=== PATIENT | female | born 1950 | race Caucasian/White ===

== ENCOUNTER 2019-12-09 13:58 | Outpatient (CLI) | payer MEDICARE, OTHER, SELFPAY ==
--- NOTE | 2019-12-09 14:30 | XRR_ITS ---
PROCEDURE INFORMATION: Exam: XR Right Shoulder Exam date and time: 12/09/2019 3:27 PM Age: 68 years old Clinical indication: Pain; Shoulder; Right; Additional info: Pain in right shoulder, neck pain TECHNIQUE: Imaging protocol: XR Right shoulder. Views: 2 or more views. COMPARISON: No relevant prior studies available. FINDINGS: Bones/joints: No dislocation is seen. The acromioclavicular and glenohumeral joints are normally aligned. No fracture is visualized. No destructive osseous lesions are seen. Soft tissues: There are no findings of calcific tendinitis. XR/XR shoulder RT min 2V* [id number] IMPRESSION: No acute radiographic abnormality of the shoulder.
--- NOTE | 2019-12-09 14:30 | XRR_ITS ---
PROCEDURE INFORMATION: Exam: XR Cervical Spine, 6 or More Views Exam date and time: 12/09/2019 3:19 PM Age: 68 years old Clinical indication: Neck pain; Additional info: Cervicalgia, chronic pain TECHNIQUE: Imaging protocol: XR of the cervical spine, 6 or more views. COMPARISON: CR Cervical Spine AP/Lat* [id number] 02/12/2015 10:07 AM FINDINGS: Vertebrae: Diffuse cervical facet arthropathy. Oblique views demonstrate encroachment of the left neural foramen at C5-C6. There are no anterior wedging deformities. No acute lucent fracture lines are visualized. Spondylitic changes are most prominent at the C5-C6 level. Soft tissues: Normal. XR/XR cervical spine min 6V [id number] IMPRESSION: 1. Spondylitic changes most prominent at C5-C6. 2. Diffuse cervical facet arthropathy. 3. Left neural foraminal encroachment at C5-C6.
== END 2019-12-09 13:59 | disposition home or self-care (01) ==
LOC: RAD 14:05
PROVIDERS: Family Provider Family Medicine; PCP Nurse Practitioner Family; Visit Provider Nurse Practitioner Family
DX: M47.892 Other spondylosis, cervical region (principal); M54.2 Cervicalgia; M25.511 Pain in right shoulder
CPT/HCPCS: 72052; 73030

== ENCOUNTER 2019-12-16 14:09 | Outpatient (CLI) | payer MEDICARE, OTHER, SELFPAY ==
--- NOTE | 2019-12-16 | XR_ITS ---
WS: [id number] LATERAL CERVICAL SPINE: 3 view. Lateral radiographs are performed in upright neutral, flexion and extension to the patient's toleranc e. HISTORY: SPONDYLOSIS WITHOUT MYELOPATHY OR RADICULOPATHY, CERVICAL region COMPARISON: 12/09/2019 Straightening of the normal cervical lordosis. Spondylitic changes most significant at C5-C6. 3 mm os teophyte extends posteriorly C5. 2 mm retrolisthesis of C5 with no change with flexion and extension. XR/XR cervical spine fl/ex [id number] IMPRESSION: 1. No cervical instability. 2. Less than 2 mm retrolisthesis of C5 with no instability. 3. Moderate spondylitic changes at C5-6.
== END 2019-12-16 14:10 | disposition home or self-care (01) ==
LOC: RADWPI 14:14
PROVIDERS: Family Provider Family Medicine; PCP Nurse Practitioner Family; Visit Provider Anesthesiology Pain Medicine
DX: M47.812 Spondylosis without myelopathy or radiculopathy, cervical region (principal)
CPT/HCPCS: 72040

== ENCOUNTER 2020-08-02 13:54 | Outpatient (CLI) | payer MEDICARE, OTHER, SELFPAY ==
--- NOTE | 2020-08-02 14:04 | XR_ITS ---
WS: [id number] SCREENING DEXA SCAN [facility] CLINICAL INFORMATION: POST MENOPAUSAL COMPARISON: 03 10,018 FINDINGS: The L1-L4 bone mineral density measures 0.975 g/cm2. This corresponds to a T score score of -1.7 and Z score of -0.6. Left femoral neck bone mineral density measures 0.865 g/cm2. This corresponds to a T score of -1.1 an d Z score of -0.2. Right femoral neck bone mineral density measures 0.889 g/cm2. This corresponds to a T score -0.9of an d Z score of 0.0. Mean femoral neck bone mineral density measures 0.877 g/cm2. This corresponds to a T score of -1.0 an d Z score of -0.1. XR/XR DEXA axial skeleton* [id number] IMPRESSION: Osteopenia Patient's FRAX calculated 10 year probability for major osteoporotic fracture i s 15.3 % and osteoporotic hip fracture is 2.0%.
== END 2020-08-02 13:55 | disposition home or self-care (01) ==
LOC: RADWPI 13:56
PROVIDERS: Family Provider Family Medicine; PCP Nurse Practitioner Family; Visit Provider Nurse Practitioner Family
DX: Z78.0 Asymptomatic menopausal state (principal); M85.89 Other specified disorders of bone density and structure, multiple sites
CPT/HCPCS: 77080

== ENCOUNTER → 2020-08-03 14:01 | Outpatient (BNVA) | payer MEDICARE, OTHER, SELFPAY | PROVIDERS: Family Provider Family Medicine; PCP Nurse Practitioner Family; Referring Provider Nurse Practitioner Family; Visit Provider Nurse Practitioner Family | DX: N39.3 Stress incontinence (female) (male) (principal) | CPT/HCPCS: 81001 ==

== ENCOUNTER 2021-07-24 10:41 | Outpatient (CLI) | payer MEDICARE, OTHER, SELFPAY ==
--- NOTE | 2021-07-24 10:47 | MM_ITS ---
WS: [id number] BILATERAL SCREENING DIGITAL MAMMOGRAM WITH CAD HISTORY: SCREENING COMPARISON: 06/26/2017 and 02/02/2015 Bilateral CC and MLO views submitted. Computer aided detection analyzed. Breast composition: There are scattered areas of fibroglandular density. No suspicious masses, microc alcifications or architectural distortion. MM/[place] [id number] IMPRESSION: BI-RADS: 1-Negative FOLLOW UP: 1 Year Follow-up
== END 2021-07-24 10:42 | disposition home or self-care (01) ==
LOC: RADSHAW 10:45
PROVIDERS: PCP Electrodiagnostic Medicine; Visit Provider Electrodiagnostic Medicine
DX: Z12.31 Encounter for screening mammogram for malignant neoplasm of breast (principal)
CPT/HCPCS: 77067

== ENCOUNTER → 2021-12-25 14:03 | Outpatient (BNVA) | payer MEDICARE, OTHER, SELFPAY | PROVIDERS: PCP Electrodiagnostic Medicine; Visit Provider Specialist | DX: G24.3 Spasmodic torticollis (principal); M54.12 Radiculopathy, cervical region; L98.9 Disorder of the skin and subcutaneous tissue, unspecified | CPT/HCPCS: 99204 ==

== ENCOUNTER 2022-02-06 10:37 | Outpatient (CLI) | payer MEDICARE, OTHER, SELFPAY ==
--- NOTE | 2022-02-06 11:00 | MR_ITS ---
WS: [id number] MRI CERVICAL SPINE NONCONTRAST HISTORY: G24.3 - Spasmodic torticollis COMPARISON: 12/16/2019 Technique: Multiplanar, multisequence noncontrast imaging of the cervical spine. Curvature of the cervical spine may be positional. Patient's head is rotated to the LEFT. Posterior a lignment is normal. No acute marrow edema. Advanced degenerative disc disease at C5-6. Similar to the prior study. Disc space narrowing at all levels with osteophytes. Evaluation of the cervical cord is limited. No evidence for atrophy or myelomalacia but subtle areas would not be visible. Visualized posterior fossa is unremarkable. Craniocervical junction appears intact with degenerative changes at the odontoid process. C2-C3: Osteophytic ridging resulting in mild central and bilateral foraminal stenosis. Mild facet art hritis. C3-C4: Diffuse osteophytic ridging and annular disc bulging. Bilateral facet joint arthritis. Disc os teophyte complex is more significant on the LEFT. C4-C5: Diffuse moderate annular disc bulging and osteophytic ridging. Disc osteophyte complexes exten d into the neural foramen slightly greater on the RIGHT. There is contact on the ventral thecal sac. Mild central and bilateral foraminal stenosis. C5-C6: Diffuse annular disc bulging with a focal central disc protrusion. Moderate-sized disc osteoph yte complexes extend into the neural foramen. Moderate central and bilateral foraminal stenosis. C6-C7: No significant stenosis. C7-T1: No significant stenosis. Paraspinal soft tissue are normal. MR/MR cervical spin wo con* [id number] IMPRESSION: 1. Multilevel moderate to severe degenerative disc disease and spondylosis. Mo st significant at C5-6. There is been mild progression since 12/16/2019. 2. Moderate central and bilateral foraminal stenosis at C5-6 due to disc and o steophyte disease. 3. Mild central and bilateral foraminal stenosis at C2-3, C3-4 and C4-5. Sligh tly greater disc osteophyte complex in the LEFT neural foramen of C3-4.
== END 2022-02-06 10:38 | disposition home or self-care (01) ==
LOC: RAD 10:38
PROVIDERS: PCP Electrodiagnostic Medicine; Visit Provider Specialist
DX: G24.3 Spasmodic torticollis (principal); M50.322 Other cervical disc degeneration at C5-C6 level; M25.78 Osteophyte, vertebrae; M48.02 Spinal stenosis, cervical region
CPT/HCPCS: 72141

== ENCOUNTER → 2022-03-21 13:39 | Outpatient (BNVA) | payer MEDICARE, OTHER, SELFPAY | PROVIDERS: PCP Electrodiagnostic Medicine; Visit Provider Specialist | DX: G24.3 Spasmodic torticollis (principal); M54.12 Radiculopathy, cervical region | CPT/HCPCS: 64616; 99214; J0585 ==

== ENCOUNTER → 2022-06-13 15:27 | Outpatient (BNVA) | payer MEDICARE, OTHER, SELFPAY | PROVIDERS: PCP Electrodiagnostic Medicine; Visit Provider Specialist | DX: G24.3 Spasmodic torticollis (principal) | CPT/HCPCS: 64616; J0585 ==

== ENCOUNTER → 2022-07-01 13:53 | Outpatient (BNVA) | payer MEDICARE, OTHER, SELFPAY | PROVIDERS: PCP Electrodiagnostic Medicine; Visit Provider Internal Medicine Cardiovascular Disease | DX: R55 Syncope and collapse (principal); I10 Essential (primary) hypertension; E78.5 Hyperlipidemia, unspecified; K21.9 Gastro-esophageal reflux disease without esophagitis; F32.9 Major depressive disorder, single episode, unspecified | CPT/HCPCS: 99214 ==

== ENCOUNTER 2022-07-15 13:23 | Outpatient (CLI) | payer MEDICARE, OTHER, SELFPAY ==
--- NOTE | 2022-07-15 13:44 | XR_ITS ---
WS: [email or web address] Exam: XR KUB [id number] Date/Time of Exam: 07/15/2022 1:49 PM Reason For Exam: HX OF NEPHROLITHIASIS No bowel obstruction or free air. Small calcification superimpose right renal silhouette and may repr esent renal stones. Nonspecific bilateral pelvic calcifications. No sign of organ enlargement. Degene rative changes of the lower lumbar spine. Signs of previous pelvic surgery. XR/XR KUB [id number] IMPRESSION: 1. No acute abdominal finding. 2. Calcification superimpose right kidney and may represent small renal stones. Nonspecific bilateral pelvic calcifications. 3. Postoperative changes of the pelvis.
== END 2022-07-15 13:24 | disposition home or self-care (01) ==
LOC: RAD 13:28
PROVIDERS: PCP Electrodiagnostic Medicine; Visit Provider Urology
DX: Z87.442 Personal history of urinary calculi (principal)
CPT/HCPCS: 74018

== ENCOUNTER 2022-08-05 12:57 | Outpatient (CLI) | payer MEDICARE, OTHER, SELFPAY ==
--- NOTE | 2022-08-05 13:00 | XR_ITS ---
WS: [email or web address] DEXA (DUAL ENERGY X-RAY ABSORPTIOMETRY) Bone mineral density was performed using a [employer]ango machine. HISTORY: POSTMENOPAUSAL COMPARISON: 08/02/2020 Lumbar spine BMD (L1-L4): 0.987 g/cm2 T score: -1.6 Z score: -0.3 Total hip BMD: Left: 0.894 g/cm2. T score: -0.9 Z score: 0.3 Right: 0.836 g/cm2. T score: -1.4 Z score: -0.2 10 year probability of a major osteoporotic fracture is 9.8% Compared to the prior study from 08/02/2020. Lumbar spine bone mineral density has increased by 1.2%. Bilateral hips bone mineral density has decreased by 1.4%. XR/XR DEXA axial skeleton* [id number] IMPRESSION: OSTEOPENIA based upon the WHO classification for females. No significant change in bone mineral density since the prior exam.
== END 2022-08-05 12:58 | disposition home or self-care (01) ==
LOC: RAD 12:57
PROVIDERS: PCP Electrodiagnostic Medicine; Visit Provider Physician Assistant
DX: Z78.0 Asymptomatic menopausal state (principal); M85.80 Other specified disorders of bone density and structure, unspecified site
CPT/HCPCS: 77080

== ENCOUNTER → 2022-09-05 15:09 | Outpatient (BNVA) | payer MEDICARE, OTHER, SELFPAY | PROVIDERS: PCP Electrodiagnostic Medicine; Visit Provider Specialist | DX: G24.3 Spasmodic torticollis (principal); G25.0 Essential tremor | CPT/HCPCS: 64616; J0585 ==

== ENCOUNTER → 2022-11-28 15:00 | Outpatient (BNVA) | payer MEDICARE, OTHER, SELFPAY | PROVIDERS: PCP Electrodiagnostic Medicine; Visit Provider Specialist | DX: G24.3 Spasmodic torticollis (principal) | CPT/HCPCS: 64616; J0585 ==

== ENCOUNTER → 2022-12-30 14:10 | Outpatient (BNVA) | payer MEDICARE, OTHER, SELFPAY | PROVIDERS: PCP Electrodiagnostic Medicine; Visit Provider Internal Medicine Cardiovascular Disease | DX: I10 Essential (primary) hypertension (principal); E78.5 Hyperlipidemia, unspecified; Z87.891 Personal history of nicotine dependence | CPT/HCPCS: 99214; Q3014 ==

== ENCOUNTER 2023-03-07 11:21 | Outpatient (CLI) | payer MEDICARE, OTHER, SELFPAY ==
--- NOTE | 2023-03-07 11:36 | XRR_ITS ---
PROCEDURE INFORMATION: Exam: XR Abdomen Exam date and time: 03/07/2023 11:48 AM Age: 72 years old Clinical indication: Other: Nephrolithiasis; Prior surgery; Surgery type: Appy, hyster, bladder, tubal TECHNIQUE: Imaging protocol: Radiologic exam of the abdomen. Views: Frontal supine view of the abdomen. 1 View. Total images: 1058 COMPARISON: CR XR KUB [id number] 07/15/2022 1:47 PM FINDINGS: Gastrointestinal tract: Bowel gas pattern is nondistended and nonobstructive. Bones/joints: Spinal degenerative changes are evident. Several small calcific densities project in the right flank adjacent to the right 12th rib and transverse process of the 1st and 2nd lumbar vertebrae may represent small renal calculi versus vascular calcifications. These appear similar to the prior exam. Soft tissues: Mesh repair of the anterior abdominal wall is noted. Other findings: Mild stool burden. Previously noted irregular calcification just lateral to the left transverse process of L1 is not visualized on today's exam. XR/XR KUB [id number] IMPRESSION: 1. Normal bowel gas pattern 2. Mild stool burden. 3. Several small calcific densities project in the right flank adjacent to the right 12th rib and transverse process of the 1st and 2nd lumbar vertebrae may represent small renal calculi versus vascular calcifications. These appear similar to the prior exam. 4. Previously noted irregular calcification just lateral to the left transverse process of L1 is not visualized on today's exam.
== END 2023-03-07 11:22 | disposition home or self-care (01) ==
PROVIDERS: PCP Electrodiagnostic Medicine; Visit Provider Urology
DX: N20.0 Calculus of kidney (principal)
CPT/HCPCS: 74018

== ENCOUNTER → 2023-05-06 13:56 | Outpatient (BNVA) | payer MEDICARE, OTHER, SELFPAY | PROVIDERS: PCP Electrodiagnostic Medicine; Visit Provider Dermatology | DX: L82.0 Inflamed seborrheic keratosis (principal); L82.1 Other seborrheic keratosis; L72.0 Epidermal cyst; L81.4 Other melanin hyperpigmentation; Z80.8 Family history of malignant neoplasm of other organs or systems | CPT/HCPCS: 17110; 99213 ==

== ENCOUNTER 2023-07-25 12:20 | Outpatient (CLI) | payer MEDICARE, OTHER, SELFPAY ==
--- NOTE | 2023-07-25 12:27 | MM_ITS ---
WS: [email or web address] BILATERAL 3D TOMOSYNTHESIS DIGITAL SCREENING MAMMOGRAPHY WITH CAD CLINICAL INFORMATION: SCREENING HISTORY: Screening mammogram. No current complaints. COMPARISON: 2020 TECHNIQUE: Bilateral CC and MLO views. FINDINGS: Scattered fibroglandular densities bilaterally. No suspicious focal mass, asymmetry, calcifications, or architectural distortion. No evidence of malignancy. A few incidental punctate and lucent centered calcifications. IMPRESSION: MM/[place] [id number] BI-RADS: 2-Benign FOLLOW UP: 1 Year Follow-up Recommend return to annual screening mammography.
== END 2023-07-25 12:21 | disposition home or self-care (01) ==
PROVIDERS: PCP Electrodiagnostic Medicine; Visit Provider Electrodiagnostic Medicine
DX: Z12.31 Encounter for screening mammogram for malignant neoplasm of breast (principal)
CPT/HCPCS: 77063; 77067

== ENCOUNTER 2023-09-30 13:32 | Outpatient (CLI) | payer MEDICARE, OTHER, SELFPAY ==
--- NOTE | 2023-09-30 13:35 | CT_ITS ---
WS: [email or web address] LDCT LUNG CANCER SCREENING TECHNIQUE: Noncontrast CT of the chest with coronal and sagittal reformatted images. CLINICAL INFORMATION: HX OF TOBACCO USE COMPARISON: CTA chest 2017 DLP: 53.31 mGy.cm DIvol: Mean CTDIvol: 1.00 (mGy) All CT scans at [facility] use at least one of these dose optimization techniques: automat ed exposure control; mA and/or kV adjustment per patient size (includes targeted exams where dose is matched to clinical indication); or iterative reconstruction. FINDINGS: Few calcified granulomas. Small nodule along the lingula at the fissure measuring 6 mm. Normal caliber thoracic aorta. Aortic calcification. Coronary calcification. No mediastinal or hilar lymphadenopathy. RIGHT lower pole thyroid nodule measuring 2.5 cm. No axillary lymphadenopathy. Adren al glands are normal. Normal GE junction. Mild thoracic curve. Mild thoracic kyphosis. IMPRESSION: CT/CT lung screening [id number] LUNG-RADS: 2-Benign Appearance or Behavior FOLLOW UP: 12 Month: Continue annual screening with LDCT
== END 2023-09-30 13:33 | disposition home or self-care (01) ==
LOC: RAD 13:32
PROVIDERS: PCP Electrodiagnostic Medicine; Visit Provider Family Medicine
DX: Z12.2 Encounter for screening for malignant neoplasm of respiratory organs (principal); Z87.891 Personal history of nicotine dependence
CPT/HCPCS: 71271

== ENCOUNTER → 2024-01-27 12:28 | Outpatient (BNVA) | payer MEDICARE, OTHER, SELFPAY | PROVIDERS: PCP Electrodiagnostic Medicine; Visit Provider Internal Medicine Cardiovascular Disease | DX: E78.5 Hyperlipidemia, unspecified (principal); I10 Essential (primary) hypertension; Z87.891 Personal history of nicotine dependence | CPT/HCPCS: 99213 ==

== ENCOUNTER 2024-04-09 13:58 | Outpatient (CLI) | payer MEDICARE, OTHER, SELFPAY ==
--- NOTE | 2024-04-09 14:03 | XRR_ITS ---
PROCEDURE INFORMATION: Exam: XR Abdomen Exam date and time: 04/09/2024 2:11 PM Age: 73 years old Clinical indication: Prior surgery; Surgery date: 6+ months; Surgery type: Tubal, hysterectomy, appendectomy; Patient HX: Nephrolithiasis; RT flank pain; HX kidney stones TECHNIQUE: Imaging protocol: Radiologic exam of the abdomen. Views: 2 Views. Upright and supine views. COMPARISON: CR XR KUB [id number] 03/07/2023 11:48 AM FINDINGS: Tubes, catheters and devices: Prior ventral pelvic wall repair clips are present. Lungs: Lung bases are clear. Gastrointestinal tract: There is excessive colonic stool content. Nonobstructive bowel gas pattern. Intraperitoneal space: There is no free intraperitoneal air. Organs: Renal shadows are partially obscured by overlying bowel gas and fecal material. Several punctate calcifications are suggested to overlie the right renal shadow, measuring up to 3 mm. 7 mm linear calcification overlying the upper pole of the left renal shadow, likely a superimposed known pancreatic calcification. No other significant calcifications overlying the renal shadows. Bones/joints: Vascular calcifications in the bilateral thighs. No acute fracture, dislocation, or aggressive osseous lesion. XR/XR abdomen min 2V [id number] IMPRESSION: Questionable right punctate nephrolithiasis.
== END 2024-04-09 13:59 | disposition home or self-care (01) ==
LOC: RAD 14:00
PROVIDERS: PCP Electrodiagnostic Medicine; Visit Provider Urology
DX: N20.0 Calculus of kidney (principal); Z98.890 Other specified postprocedural states; I70.209 Unspecified atherosclerosis of native arteries of extremities, unspecified extremity
CPT/HCPCS: 74019

== ENCOUNTER → 2024-05-18 09:04 | Outpatient (BNVA) | payer MEDICARE, OTHER, SELFPAY | PROVIDERS: PCP Electrodiagnostic Medicine; Visit Provider Nurse Practitioner Family | DX: L82.1 Other seborrheic keratosis (principal); L81.4 Other melanin hyperpigmentation; Z80.8 Family history of malignant neoplasm of other organs or systems; L91.8 Other hypertrophic disorders of the skin; D22.5 Melanocytic nevi of trunk | CPT/HCPCS: 17110; 99213 ==

== ENCOUNTER 2024-08-03 12:50 | Outpatient (CLI) | payer MEDICARE, OTHER, SELFPAY ==
--- NOTE | 2024-08-03 12:54 | USCV_ITS ---
Greta Dennis Age: 73 Gender: F : 1950 Exam Date: 08/03/2024 13:35 Ordering Phys: Marco Antonio Wolfe DO Technologist: [employer] [place]am [place] [facility] [place] Indication: Risk Factors: Previous Vascular Surgery: Right Brachial BP: / Left Brachial BP: / Right Left Velocity (cm/s) Spectral Plaque Velocity (cm/s) Spectral Plaque Syst/Diast Broadening Syst/Diast Broadening 76.80/ 17.90 Prox CCA 87.30 / 19.10 123.90/29.50 Mid CCA 70.10 / 16.10 80.10/ 27.30 Distal CCA 73.40 / 18.60 53.70/ 14.70 Prox ICA 122.20/ 36.70 63.90/ 17.80 Mid ICA 100.50/ 28.70 54.30/ 15.70 Distal ICA 84.00 / 21.70 40.70 ECA 90.30 0.80 ICA/CCA 1.70 Antegrade Vertebral Antegrade 73.30/ 21.60 cm/s 47.60/ 12.80 cm/s Tri Subclavian Tri 79.30 65.10 FINDINGS Comparison: none available. Mixture of calcified and noncalcified plaque in the bifurcations. Waveforms are normal. No significant elevation of systolic or diastolic velocities. CONCLUSIONS Bilateral ICA stenosis less than 50%. Mild carotid atherosclerosis. Dr. Hiral Boswell DO (Electronically Signed) Final Date: 03 August 2024 14:55 S
== END 2024-08-03 12:51 | disposition home or self-care (01) ==
LOC: RAD 12:51
PROVIDERS: PCP Electrodiagnostic Medicine; Visit Provider Electrodiagnostic Medicine
DX: R55 Syncope and collapse (principal); I65.23 Occlusion and stenosis of bilateral carotid arteries
CPT/HCPCS: 93306; 93880

== ENCOUNTER → 2025-02-01 14:30 | Outpatient (BNVA) | payer MEDICARE, OTHER, SELFPAY | PROVIDERS: PCP Electrodiagnostic Medicine; Visit Provider Internal Medicine Cardiovascular Disease | DX: I10 Essential (primary) hypertension (principal); R00.2 Palpitations; E78.5 Hyperlipidemia, unspecified; F41.9 Anxiety disorder, unspecified; Z87.891 Personal history of nicotine dependence | CPT/HCPCS: 99214 ==

== ENCOUNTER → 2025-04-12 15:44 | Outpatient (BNVA) | payer MEDICARE, OTHER, SELFPAY | PROVIDERS: PCP Electrodiagnostic Medicine; Visit Provider Specialist | DX: G24.3 Spasmodic torticollis (principal) | CPT/HCPCS: 99215 ==

== ENCOUNTER → 2025-05-18 09:37 | Outpatient (BNVA) | payer MEDICARE, OTHER, SELFPAY | PROVIDERS: PCP Electrodiagnostic Medicine; Visit Provider Nurse Practitioner Family | DX: L82.1 Other seborrheic keratosis (principal); L81.4 Other melanin hyperpigmentation; D22.5 Melanocytic nevi of trunk; Z80.8 Family history of malignant neoplasm of other organs or systems; L82.0 Inflamed seborrheic keratosis; L29.89 Other pruritus; L53.8 Other specified erythematous conditions; R20.8 Other disturbances of skin sensation; Z78.9 Other specified health status; L57.0 Actinic keratosis | CPT/HCPCS: 17000; 17110; 99213 ==

== ENCOUNTER → 2025-07-28 08:52 | Outpatient (BNVA) | payer MEDICARE, OTHER, SELFPAY | PROVIDERS: PCP Electrodiagnostic Medicine; Visit Provider Specialist | DX: G24.3 Spasmodic torticollis (principal) | CPT/HCPCS: 64616; J0585; J9999 ==

== ENCOUNTER 2025-08-22 11:33 | Outpatient (CLI) | payer MEDICARE, OTHER, SELFPAY ==
--- NOTE | 2025-08-22 11:39 | MR_ITS ---
WS: [id number] MRI RIGHT SHOULDER HISTORY: ROTATOR CUFF SYNDROME OF R SHOULDER COMPARISON: Radiograph 08/31/2024 TECHNIQUE: Multiplanar sequences of the shoulder joint are submitted. Severe AC joint arthritis. Synovial thickening with narrowing of the AC joint. Small erosions in the distal clavicle. Encroachment upon the myotendinous portion of the supraspinatus. Mild subacromial impingement. No os acromion. Biceps tendon is absent from the bicipital groove. Humeral head is high riding abutting the undersurface of the acromion. Small joint effusion surrounds the humeral head. Moderate atrophy of the supraspinatus and subscapularis muscles. Supraspinatus tendon is torn and retracted to the medial humeral head. Fluid extending along the subscapularis tendon sheath consistent with an interstitial tear. There is no full-thickness tear or retraction. Infraspinatus tendon is intact. Degenerative changes within the labrum. Short segment tear involving the anterior labrum. MR/MR shoulder RT wo con* [id number] IMPRESSION: 1. Severe AC joint arthritis with encroachment upon the myotendinous portion o f the supraspinatus. 2. High riding humeral head. 3. Complete tear of the supraspinatus tendon with retraction to the medial hum eral head. 4. Absent biceps tendon in the bicipital groove. Tendon is probably torn and/o r dislocated. 5. Joint effusion. Additional fluid extending along the subscapularis tendon s anastacio. 6. Interstitial tear of the distal subscapularis tendon. 7. Moderate atrophy of the supraspinatus and subscapularis muscles. 8. Short segment tear anterior labrum.
== END 2025-08-22 11:34 | disposition home or self-care (01) ==
LOC: RAD 11:34
PROVIDERS: PCP Electrodiagnostic Medicine; Visit Provider Electrodiagnostic Medicine
DX: M75.101 Unspecified rotator cuff tear or rupture of right shoulder, not specified as traumatic (principal); M19.011 Primary osteoarthritis, right shoulder; M25.411 Effusion, right shoulder; S46.811A Strain of other muscles, fascia and tendons at shoulder and upper arm level, right arm, initial encounter; X58.XXXA Exposure to other specified factors, initial encounter
CPT/HCPCS: 73221

== ENCOUNTER 2025-09-08 10:23 | Outpatient (CLI) | payer MEDICARE, OTHER, SELFPAY ==
--- NOTE | 2025-09-08 10:20 | MM_ITS ---
WS: [id number] BILATERAL SCREENING DIGITAL TOMOSYNTHESIS MAMMOGRAM WITH CAD HISTORY: SCREENING COMPARISON: 07/25/2023, 07/24/2021 Bilateral CC and MLO views with tomosynthesis and synthetic mammography submitted. Computer aided detection analyzed. Breast composition: There are scattered areas of fibroglandular density. No suspicious masses, microcalcifications or architectural distortion. Benign calcifications in each breast. MM/MM scr BI tomosynthesis [id number] IMPRESSION: BI-RADS: 2 - Benign. FOLLOW UP: 1 Year Follow-up
== END 2025-09-08 10:24 | disposition home or self-care (01) ==
LOC: MOBLMAM 10:26
PROVIDERS: PCP Electrodiagnostic Medicine; Visit Provider Electrodiagnostic Medicine
DX: Z12.31 Encounter for screening mammogram for malignant neoplasm of breast (principal); R92.323 Mammographic fibroglandular density, bilateral breasts; R92.1 Mammographic calcification found on diagnostic imaging of breast
CPT/HCPCS: 77063; 77067

== ENCOUNTER → 2025-10-05 09:38 | Outpatient (BNVA) | payer MEDICARE, OTHER, SELFPAY | PROVIDERS: PCP Electrodiagnostic Medicine; Visit Provider Student in an Organized Health Care Education/Training Program | DX: M25.511 Pain in right shoulder (principal); M19.011 Primary osteoarthritis, right shoulder; M75.41 Impingement syndrome of right shoulder | CPT/HCPCS: 73030; 99204 ==

== ENCOUNTER → 2025-10-27 12:02 | Outpatient (BNVA) | payer MEDICARE, OTHER, SELFPAY | PROVIDERS: PCP Electrodiagnostic Medicine; Visit Provider Specialist | DX: G24.3 Spasmodic torticollis (principal) | CPT/HCPCS: 64616; J9999 ==

== ENCOUNTER → 2025-10-28 11:12 | Outpatient (BNVA) | payer MEDICARE, OTHER, SELFPAY | PROVIDERS: PCP Electrodiagnostic Medicine; Visit Provider Student in an Organized Health Care Education/Training Program | DX: M19.011 Primary osteoarthritis, right shoulder (principal); M75.41 Impingement syndrome of right shoulder | CPT/HCPCS: 20610; 77002; J3301; J9999 ==